=== PATIENT | female | born 1955 | race Caucasian/White ===

== ENCOUNTER 2017-05-27 03:08 | Observation (INO) | payer OTHER ==
[~2017-05-27] VITALS: Ht 170.2 cm; Wt 83.2 kg
[~2017-05-27 03:08] MED LIST: BACTRIM DS1 TAB PO; COZAAR25 MG PO; LIVALO2 MG PO
[2017-05-27 04:06] LABS: HEMOGLOBIN 13.5 g/dl (12.0-16.0); IMMATURE GRANULOCYTES 0.2 % (0.0-1.0); MEAN CELL VOLUME 86.1 fL CALC (80.0-100.0); MEAN CORPUSCULAR HGB 28.4 pG CALC (26.0-32.0); MEAN CORPUSCULAR HGB CONC 32.9 g/L CALC (32.0-36.0); NEUT# 2.62 thou/uL (2.00-7.15); RED BLOOD COUNT 4.76 mill/uL (4.20-5.60); RED CELL DISTRI WIDTH 13.2 % (11.5-15.5)
[2017-05-27 04:13] LABS: ALBUMIN 4.3 g/dL (3.2-5.0); ALKALINE PHOSPHATASE 133 u/l (38-126); ANION GAP 20 (6-22 (CALC)); BILIRUBIN, TOTAL 0.4 mg/dL (0.0-1.4); BUN 16 mg/dL (8-23); BUN/CREATININE RATIO 20 (12-20 (CALC)); CARBON DIOXIDE 25 mmol/l (22-30); CHLORIDE 102 mmol/l (95-108); CREATININE 0.8 mg/dL (0.5-1.0); GFR > 60 ML/MIN (>=60 (CALC)); GFR FOR AFR.AMER. > 60 ML/MIN (>=60 (CALC)); POTASSIUM 4.2 mmol/l (3.5-5.1); SGOT/AST 26 u/l (9-36); SGPT/ALT 42 u/l (11-66); SODIUM 143 mmol/l (137-146); TOTAL PROTEIN 8.2 g/dL (6.3-8.2)
[2017-05-27 04:14] LABS: INTERNATIONAL NORMALIZED RATIO 0.9 RATIO (0.7-1.3); PROTHROMBIN TIME 10.2 SECONDS (9.0-12.5)
[2017-05-27 04:26] LABS: MYOGLOBIN 45 ng/mL (0 - 62)
[2017-05-27 04:56] LABS: URINE BILIRUBIN - DIPSTICK NEGATIVE (NEGATIVE); URINE BLOOD DIPSTICK NEGATIVE (NEGATIVE); URINE COLOR YELLOW; URINE GLUCOSE - DIPSTICK NEGATIVE (NEGATIVE); URINE KETONE NEGATIVE (NEGATIVE); URINE NITRITE - DIPSTICK NEGATIVE (Negative); URINE PROTEIN - DIPSTICK NEGATIVE (NEG-TRACE); URINE UROBILINOGEN - DIPSTICK 0.2 E.U./dL (0.2)
[2017-05-27 04:57] LABS: URINE CLARITY CLEAR; URINE LEUK ESTERASE SMALL (NEGATIVE)
[2017-05-27 05:39] LABS: URINE BACTERIA FEW hpf; URINE RBC 0-2 RBC/hpf (0-5); URINE SQUAMOUS EPITHELIAL CELL RARE EPI/hpf (0-FEW); URINE WBC 0-2 WBC/hpf (0-5)
[2017-05-27 09:01] VITALS: BP 126/98
[2017-05-27 09:02] LABS: CHOLESTEROL HDL RATIO 5.2 (<4.4 (CALC))
[2017-05-27 12:16] LABS: INFLUENZA A NONE DETECTED (NONE DETECT); INFLUENZA B NONE DETECTED (NONE DETECT)
[2017-05-27 16:21] VITALS: BP 116/53
[2017-05-27 19:15] VITALS: BP 125/74
[2017-05-28 00:35] VITALS: BP 122/70
[2017-05-28 04:28] VITALS: BP 119/73
[2017-05-28 08:06] VITALS: BP 132/71
[2017-05-28 08:13] VITALS: BP 132/71
[2017-05-28] MEDS ORDERED: ZITHROMAX Z-PA250 MG PO (11:25)
[2017-05-28] MEDS ORDERED: VENTOLIN HFA IN (11:25)
[2017-05-28] MEDS ORDERED: MEDDOSEPAK PO (11:25)
[2017-05-28] MEDS ORDERED: PROTONIX40 MG PO (11:27)
== END 2017-05-28 12:45 | disposition home or self-care (01) | DRG 203 ==
LOC: ED 03:08 → ED-I 06:30 → ED 06:43 → MS2 06:44
PROVIDERS: Emergency Medicine; Nurse Practitioner Family; ADMIT Internal Medicine; ATTEND Internal Medicine
DX: J20.9 Acute bronchitis, unspecified (principal); E78.5 Hyperlipidemia, unspecified; I10 Essential (primary) hypertension; K21.9 Gastro-esophageal reflux disease without esophagitis; R07.89 Other chest pain
CPT/HCPCS: G0378

== ENCOUNTER 2020-12-21 17:52 | Emergency (ER) | payer MEDICARE ==
[~2020-12-21] VITALS: Ht 170.2 cm; Wt 75.0 kg
[~2020-12-21 17:52] MED LIST changes: +MEDDOSEPAK PO; +PROTONIX40 MG PO; +VENTOLIN HFA IN; +ZITHROMAX Z-PA250 MG PO
[2020-12-21] MEDS ORDERED: VOLTAREN1%GEL TOP (18:50)
[2020-12-21 19:55] VITALS: BP 131/76
== END 2020-12-21 20:00 | disposition home or self-care (01) ==
LOC: ED 17:52
DX: M25.531 Pain in right wrist (principal); M79.671 Pain in right foot; M25.572 Pain in left ankle and joints of left foot; M25.562 Pain in left knee; I10 Essential (primary) hypertension; E78.00 Pure hypercholesterolemia, unspecified; K21.9 Gastro-esophageal reflux disease without esophagitis; W18.39XA Other fall on same level, initial encounter; Y92.009 Unspecified place in unspecified non-institutional (private) residence as the place of occurrence of the external cause
CPT/HCPCS: L1830

== ENCOUNTER 2023-03-22 14:03 | Emergency (ER) | payer OTHER, MEDICARE ==
[~2023-03-22] VITALS: Ht 170.2 cm; Wt 81.0 kg
[~2023-03-22 14:03] MED LIST changes: +VOLTAREN1%GEL TOP
[2023-03-22 15:20] VITALS: BP 121/79
[2023-03-22] MEDS ORDERED: NAPROXEN500 MG PO (18:26)
[2023-03-22] MEDS ORDERED: METHOCARBAMOL500 MG PO (18:26)
== END 2023-03-22 19:00 | disposition home or self-care (01) | DRG 552 ==
LOC: ED 14:03
DX: S16.1XXA Strain of muscle, fascia and tendon at neck level, initial encounter (principal); M48.02 Spinal stenosis, cervical region; I10 Essential (primary) hypertension; K21.9 Gastro-esophageal reflux disease without esophagitis; E78.00 Pure hypercholesterolemia, unspecified; V59.50XA Passenger in pick-up truck or van injured in collision with unspecified motor vehicles in traffic accident, initial encounter